=== PATIENT | male | born 1940 | race Caucasian/White ===

== ENCOUNTER 2018-05-28 14:33 | Inpatient (IN) | payer MEDICARE, OTHER ==
[~2018-05-28] VITALS: Ht 177.8 cm; Wt 68.2 kg
[2018-05-28] MEDS ORDERED: aspirin 81mg tab.chew PO ONE (15:00)
[2018-05-28] MEDS ORDERED: furosemide 10 MG/1 ML 10ml inj IV ONE (15:00)
[2018-05-28 15:23] LABS: BASOPHILS % (AUTO) 0.7 % (0-1); EOSINOPHILS % (AUTO) 0.8 % (0-6); HEMATOCRIT 37.2 % (42.0-52.0); HEMOGLOBIN 12.6 g/dl (14.0-17.9); LYMPHOCYTES # (AUTO) 1.1 X10'3 (1.1-4.8); LYMPHOCYTES % (AUTO) 18.6 % (21-51); MEAN CORPUSCULAR HEMOGLOBIN 33.5 PG (27.0-31.0); MEAN CORPUSCULAR HGB CONC 33.8 % (33.0-36.5); MEAN CORPUSCULAR VOLUME 99.2 FL (78-98); MEAN PLATELET VOLUME 8.6 FL (7.4-10.4); MONOCYTES # (AUTO) 0.5 X10'3 (0-0.9); MONOCYTES % (AUTO) 7.8 % (2-12); NEUTROPHILS # (AUTO) 4.4 X10'3 (1.8-7.7); NEUTROPHILS % (AUTO) 72.1 % (42-75); PLATELET COUNT 226 X10'3 (140-440); RED BLOOD COUNT 3.75 X10'6 (4.70-6.10); RED CELL DISTRIBUTION WIDTH 14.1 % (11.5-14.5); WHITE BLOOD COUNT 6.1 X10'3 (4.5-11.0)
[2018-05-28 15:48] LABS: ALANINE AMINOTRANSFERASE 37 U/L (12-78); ALBUMIN 3.3 G/DL (3.4-5.0); ALKALINE PHOSPHATASE 94 IU/L (46-116); ANION GAP 5 (8-16); ASPARTATE AMINO TRANSFERASE 69 U/L (10-37); BILIRUBIN,TOTAL 0.7 MG/DL (0.1-1.0); BLOOD UREA NITROGEN 27 MG/DL (7-18); CALCIUM 8.7 MG/DL (8.5-10.1); CHLORIDE 105 MMOL/L (99-107); CREATININE 0.71 MG/DL (0.60-1.10); GLUCOSE 72 MG/DL (70-104); POTASSIUM 4.2 MMOL/L (3.5-5.1); SODIUM 140 MMOL/L (135-145); TOTAL PROTEIN 6.7 G/DL (6.4-8.2); eGFR > 90 ML/MIN
[2018-05-28 15:55] LABS: MAGNESIUM 2.1 MG/DL (1.5-2.4)
[2018-05-28] MEDS ORDERED: heparin 10,000 units/1 ML INJ IV ONE (15:55)
[2018-05-28] MEDS: heparin 25,000 UNIT/250ml bag 250 ML IV SCH ×2 (16:13→23:41)
[2018-05-28] MEDS ORDERED: LORazepam 1 MG tablet PO ONE (16:30)
[2018-05-28] MEDS ORDERED: potassium Cl 40MEQ/NS 500ml 500 ML IV PRN ×2 (16:40)
[2018-05-28] MEDS ORDERED: diphenhydrAMINE 25mg capsule PO PRN (16:40)
[2018-05-28] MEDS ORDERED: acetaminophen 325mg tablet PO PRN ×2 (16:40)
[2018-05-28] MEDS ORDERED: nitroGLYCERIN 0.4mg SUBLingual tab SL PRN (16:40)
[2018-05-28] MEDS ORDERED: ondansetron/PF 4mg/2ml inj IV PRN (16:40)
[2018-05-28] MEDS ORDERED: morphine 2 MG/ML inj. syringe IV PRN ×2 (16:40)
[2018-05-28] MEDS ORDERED: magnesium 4gm in 100ml NS 100 ML IV PRN (16:40)
[2018-05-28] MEDS ORDERED: magnesium hydroxide 30ml (MOM) UD suspension PO PRN (16:40)
[2018-05-28] MEDS ORDERED: potassium Cl 20 mEq SR tablet PO PRN ×2 (16:40)
[2018-05-28] MEDS ORDERED: HYDROcodone/acetaminophen 10/325mg tab PO PRN (16:40)
[2018-05-28] MEDS ORDERED: magnesium 1gm/100ml D5W IVPB 100 ML IV PRN (16:40)
[2018-05-28] MEDS ORDERED: HYDROcodone/acetaminophen 5mg/325mg tablet PO PRN (16:40)
[2018-05-28] MEDS ORDERED: mag hydrox/Alum hydrox/simeth 30ml oral suspension PO PRN (16:40)
[2018-05-28] MEDS ORDERED: magnesium Cl slow-release 64mg tablet PO PRN (16:40)
[2018-05-28] MEDS: normal saline 1000ml 1,000 ML IV SCH ×2 (17:02→21:18)
[2018-05-28] MEDS: atorvastatin 20mg tablet PO SCH (17:02)
[2018-05-28] MEDS: K and/or MAG REPLACEMENT MC SCH (17:03)
[2018-05-28 17:08] LABS: HEMOGLOBIN A1C 5.5 % (4.5-6.2)
[2018-05-28 17:32] LABS: CLARITY,URINE CLEAR (Clear); COLOR,URINE YELLOW (Yellow); GLUCOSE, URINE NEGATIVE (Neg); KETONES,URINE NEGATIVE (Neg); LEUKOCYTE ESTERASE ,URINE NEGATIVE (Neg); NITRITES, URINE NEGATIVE (Neg); OCCULT BLOOD,URINE NEGATIVE (Neg); PH,URINE 5.5 (4.8-8.0); PROTEIN,URINE NEGATIVE (Neg); UROBILINOGEN,URINE 0.2 E.U/dL (0.2-1.0)
[2018-05-28 17:34] LABS: UA COLLECTION TYPE NON-SPECIFIED
[2018-05-28 18:00] LABS: PARTIAL THROMBOPLASTIN TIME 25 SECONDS (22-32); PROTHROMBIN TIME 10.3 SECONDS (9.0-12.0)
[2018-05-28] MEDS ORDERED: methylPREDNISolone sod succ 125mg/2ml vial IV ONE (18:10)
[2018-05-28] MEDS ORDERED: ipratropium/albuterol 3ml nebule NEB PRN (18:10)
[2018-05-28] MEDS: levoFLOXACIN-Levaquin 750MG/D5 150 ML IV SCH (18:32)
[2018-05-28 20:00] VITALS: BP 135/86
[2018-05-28] MEDS ORDERED: aspirin/dipyridamole 25mg/200mg SR. capsule PO SCH (20:00)
[2018-05-28] MEDS: ipratropium/albuterol 3ml nebule NEB SCH (21:00)
[2018-05-28] MEDS: carVEDilol 3.125mg tablet PO SCH (21:14)
[2018-05-28] MEDS: furosemide 40mg/4ml inj IV SCH (22:00)
[2018-05-28 23:00] VITALS: BP 90/44
[2018-05-28] MEDS: heparin 10,000 units/1 ML INJ IV PRN (23:38)
[2018-05-28] MEDS: tirofiban 5mg in NS 100mL 100 ML IV SCH (23:41)
[2018-05-28] MEDS: methylPREDNISolone sod succ 125mg/2ml vial IV SCH (23:43)
[2018-05-29] VITALS (8 sets, daily range): BP systolic 103–145; BP diastolic 50–79
[2018-05-29] MEDS: ipratropium/albuterol 3ml nebule NEB SCH ×4 (03:00→21:30)
[2018-05-29 03:30] LABS: ALANINE AMINOTRANSFERASE 35 U/L (12-78); ALBUMIN 2.8 G/DL (3.4-5.0); ALBUMIN/GLOBULIN RATIO 0.8 (1.1-1.5); ALKALINE PHOSPHATASE 86 IU/L (46-116); ANION GAP 6 (8-16); ASPARTATE AMINO TRANSFERASE 54 U/L (10-37); BILIRUBIN,TOTAL 0.7 MG/DL (0.1-1.0); BLOOD UREA NITROGEN 32 MG/DL (7-18); BUN/CREATININE RATIO 33.7 (5.4-32.0); CALCIUM 8.7 MG/DL (8.5-10.1); CHLORIDE 105 MMOL/L (99-107); CREATININE 0.95 MG/DL (0.60-1.10); GLUCOSE 144 MG/DL (70-104); POTASSIUM 4.3 MMOL/L (3.5-5.1); SODIUM 140 MMOL/L (135-145); TOTAL CARBON DIOXIDE 28.8 MMOL/L (24-32); TOTAL PROTEIN 6.1 G/DL (6.4-8.2); eGFR 77 ML/MIN
[2018-05-29 03:33] LABS: CHOL/HDL RATIO 2.9 (0.00-4.99); CHOLESTEROL 155 MG/DL (0-200); HDL CHOLESTEROL 53 MG/DL (35-60); LDL CHOLESTEROL 102 MG/DL (50-100); MAGNESIUM 2.1 MG/DL (1.5-2.4); PHOSPHORUS 2.8 MG/DL (2.3-4.5); TRIGLYCERIDES 21 MG/DL (20-135)
[2018-05-29 03:49] LABS: BASOPHILS % (AUTO) 0.1 % (0-1); EOSINOPHILS % (AUTO) 0.3 % (0-6); HEMATOCRIT 35.5 % (42.0-52.0); LYMPHOCYTES # (AUTO) 0.4 X10'3 (1.1-4.8); LYMPHOCYTES % (AUTO) 9.3 % (21-51); MEAN CORPUSCULAR HEMOGLOBIN 33.4 PG (27.0-31.0); MEAN CORPUSCULAR HGB CONC 33.9 % (33.0-36.5); MEAN CORPUSCULAR VOLUME 98.6 FL (78-98); MEAN PLATELET VOLUME 9.6 FL (7.4-10.4); MONOCYTES % (AUTO) 0.6 % (2-12); NEUTROPHILS # (AUTO) 3.7 X10'3 (1.8-7.7); NEUTROPHILS % (AUTO) 89.7 % (42-75); PLATELET COUNT 212 X10'3 (140-440); RED CELL DISTRIBUTION WIDTH 13.8 % (11.5-14.5); WHITE BLOOD COUNT 4.2 X10'3 (4.5-11.0)
[2018-05-29 03:57] LABS: TOTAL CELLS COUNTED 100
[2018-05-29 03:58] LABS: GIANT PLATELET FEW; LARGE PLATELETS FEW; NEUTROPHILS % (MANUAL) 89 % (42-75); NUCLEATED RED BLOOD CELLS 1 /100WBC (0-0); PLATELET ESTIMATE NORMAL
[2018-05-29] MEDS: tirofiban 5mg in NS 100mL 100 ML IV SCH ×2 (04:31→15:18)
[2018-05-29] MEDS: K and/or MAG REPLACEMENT MC SCH (08:00)
[2018-05-29] MEDS: aspirin 81mg tab.chew PO SCH (08:21)
[2018-05-29] MEDS: lisinopril 5mg tablet PO SCH (08:21)
[2018-05-29] MEDS: atorvastatin 20mg tablet PO SCH (08:22)
[2018-05-29] MEDS: carVEDilol 3.125mg tablet PO SCH ×2 (08:22→20:08)
[2018-05-29] MEDS: levoFLOXACIN-Levaquin 750MG/D5 150 ML IV SCH (08:24)
[2018-05-29] MEDS: furosemide 40mg/4ml inj IV SCH ×2 (08:24→20:08)
[2018-05-29] MEDS: methylPREDNISolone sod succ 125mg/2ml vial IV SCH ×2 (08:24→16:18)
[2018-05-29] MEDS ORDERED: CHOL100046 PO (09:55)
[2018-05-29] MEDS ORDERED: TAMS0.4C32 PO (09:55)
[2018-05-29] MEDS ORDERED: TRAZ-218 PO (09:55)
[2018-05-29] MEDS ORDERED: ASPI81TA52 PO (09:55)
[2018-05-29] MEDS ORDERED: CITA10TA9 PO (09:55)
[2018-05-29] MEDS: heparin 10,000 units/1 ML INJ IV PRN ×2 (11:33→23:10)
[2018-05-29] MEDS: heparin 25,000 UNIT/250ml bag 250 ML IV SCH ×2 (11:39→23:12)
[2018-05-29] MEDS ORDERED: iohexol 350MG/ML 100ml bottle IV ONE (17:29)
[2018-05-29] MEDS ORDERED: LIDOcaine 1% 30ml preserv. free vial ONE (17:29)
[2018-05-29] MEDS ORDERED: heparin 1,000 UNITS/NS 500ml 0 ML ONE (17:29)
[2018-05-29] MEDS: temazepam 15mg capsule PO PRN (21:59)
[2018-05-30] VITALS (10 sets, daily range): BP systolic 107–151; BP diastolic 61–88
[2018-05-30] MEDS: methylPREDNISolone sod succ 125mg/2ml vial IV SCH ×2 (00:21→08:22)
[2018-05-30] MEDS: tirofiban 5mg in NS 100mL 100 ML IV SCH ×2 (00:30→07:53)
[2018-05-30] MEDS: ipratropium/albuterol 3ml nebule NEB SCH ×4 (03:10→20:29)
[2018-05-30 05:20] LABS: BASOPHILS % (AUTO) 0.2 % (0-1); EOSINOPHILS % (AUTO) 0 % (0-6); HEMATOCRIT 33.4 % (42.0-52.0); HEMOGLOBIN 11.3 g/dl (14.0-17.9); LYMPHOCYTES # (AUTO) 0.5 X10'3 (1.1-4.8); LYMPHOCYTES % (AUTO) 5.8 % (21-51); MEAN CORPUSCULAR HEMOGLOBIN 33.5 PG (27.0-31.0); MEAN CORPUSCULAR HGB CONC 33.9 % (33.0-36.5); MEAN CORPUSCULAR VOLUME 98.7 FL (78-98); MEAN PLATELET VOLUME 9.6 FL (7.4-10.4); MONOCYTES # (AUTO) 0.4 X10'3 (0-0.9); MONOCYTES % (AUTO) 5.1 % (2-12); NEUTROPHILS % (AUTO) 88.9 % (42-75); PLATELET COUNT 205 X10'3 (140-440); RED BLOOD COUNT 3.39 X10'6 (4.70-6.10); RED CELL DISTRIBUTION WIDTH 14.2 % (11.5-14.5); WHITE BLOOD COUNT 7.9 X10'3 (4.5-11.0)
[2018-05-30 06:02] LABS: ALANINE AMINOTRANSFERASE 27 U/L (12-78); ALBUMIN 2.6 G/DL (3.4-5.0); ALBUMIN/GLOBULIN RATIO 0.9 (1.1-1.5); ALKALINE PHOSPHATASE 70 IU/L (46-116); ANION GAP 8 (8-16); ASPARTATE AMINO TRANSFERASE 36 U/L (10-37); BILIRUBIN,TOTAL 0.4 MG/DL (0.1-1.0); BLOOD UREA NITROGEN 40 MG/DL (7-18); BUN/CREATININE RATIO 44.9 (5.4-32.0); CALCIUM 8.4 MG/DL (8.5-10.1); CHLORIDE 105 MMOL/L (99-107); CREATININE 0.89 MG/DL (0.60-1.10); GLUCOSE 134 MG/DL (70-104); MAGNESIUM 2.1 MG/DL (1.5-2.4); PHOSPHORUS 3.4 MG/DL (2.3-4.5); POTASSIUM 3.8 MMOL/L (3.5-5.1); SODIUM 141 MMOL/L (135-145); TOTAL CARBON DIOXIDE 27.9 MMOL/L (24-32); TOTAL PROTEIN 5.6 G/DL (6.4-8.2); eGFR 83 ML/MIN
[2018-05-30] MEDS ORDERED: potassium Cl 20 mEq SR tablet PO STA (07:19)
[2018-05-30] MEDS ORDERED: amiodarone 150mg/dext, iso-os 100 ML IV ONE (07:20)
[2018-05-30] MEDS: heparin 25,000 UNIT/250ml bag 250 ML IV SCH ×3 (07:51→15:46)
[2018-05-30] MEDS: levoFLOXACIN-Levaquin 750MG/D5 150 ML IV SCH (07:58)
[2018-05-30] MEDS: lisinopril 5mg tablet PO SCH (08:14)
[2018-05-30] MEDS: atorvastatin 20mg tablet PO SCH (08:14)
[2018-05-30] MEDS: aspirin 81mg tab.chew PO SCH (08:14)
[2018-05-30] MEDS: carVEDilol 3.125mg tablet PO SCH ×2 (08:14→20:57)
[2018-05-30] MEDS: furosemide 40mg/4ml inj IV SCH ×2 (08:22→20:57)
[2018-05-30] MEDS: amiodarone/D5 360MG/200ML BAG 200 ML IV SCH ×2 (11:32→17:34)
[2018-05-30] MEDS ORDERED: atorvastatin 20mg tablet PO ONE (13:30)
[2018-05-30] MEDS ORDERED: nicotine 21mg patch - 24 hr TD ONE (14:05)
[2018-05-30] MEDS ORDERED: CITALOpram 10mg tablet PO ONE (14:55)
[2018-05-30] MEDS ORDERED: tirofiban 5mg in NS 100mL 100 ML IV SCH (15:10)
[2018-05-30] MEDS: heparin 10,000 units/1 ML INJ IV PRN (15:43)
[2018-05-30] MEDS ORDERED: clopidogrel 300mg tablet PO ONE ×2 (15:45→17:30)
[2018-05-30] MEDS: normal saline 1000ml 1,000 ML IV SCH (16:40)
[2018-05-30] MEDS: temazepam 15mg capsule PO PRN (23:21)
[2018-05-31 02:00] VITALS: BP 104/61
[2018-05-31] MEDS: ipratropium/albuterol 3ml nebule NEB SCH ×2 (03:00→08:06)
[2018-05-31 04:49] LABS: BASOPHILS # (AUTO) 0.1 X10'3 (0-0.2); BASOPHILS % (AUTO) 1.2 % (0-1); EOSINOPHILS # (AUTO) 0.1 X10'3 (0-0.9); EOSINOPHILS % (AUTO) 0.9 % (0-6); HEMATOCRIT 32.1 % (42.0-52.0); HEMOGLOBIN 10.8 g/dl (14.0-17.9); LYMPHOCYTES # (AUTO) 0.8 X10'3 (1.1-4.8); LYMPHOCYTES % (AUTO) 9.6 % (21-51); MEAN CORPUSCULAR HEMOGLOBIN 33.4 PG (27.0-31.0); MEAN CORPUSCULAR HGB CONC 33.7 % (33.0-36.5); MONOCYTES # (AUTO) 0.6 X10'3 (0-0.9); MONOCYTES % (AUTO) 7.2 % (2-12); NEUTROPHILS # (AUTO) 6.9 X10'3 (1.8-7.7); NEUTROPHILS % (AUTO) 81.1 % (42-75); PLATELET COUNT 208 X10'3 (140-440); RED BLOOD COUNT 3.24 X10'6 (4.70-6.10); RED CELL DISTRIBUTION WIDTH 14.3 % (11.5-14.5); WHITE BLOOD COUNT 8.6 X10'3 (4.5-11.0)
[2018-05-31 05:03] LABS: ALBUMIN 2.5 G/DL (3.4-5.0); ALBUMIN/GLOBULIN RATIO 0.9 (1.1-1.5); MAGNESIUM 2.1 MG/DL (1.5-2.4); POTASSIUM 3.7 MMOL/L (3.5-5.1); TOTAL PROTEIN 5.4 G/DL (6.4-8.2)
[2018-05-31 05:24] LABS: ALANINE AMINOTRANSFERASE 29 U/L (12-78); ALKALINE PHOSPHATASE 69 IU/L (46-116); ANION GAP 7 (8-16); ASPARTATE AMINO TRANSFERASE 33 U/L (10-37); BILIRUBIN,TOTAL 0.3 MG/DL (0.1-1.0); BLOOD UREA NITROGEN 49 MG/DL (7-18); BUN/CREATININE RATIO 47.6 (5.4-32.0); CALCIUM 8.5 MG/DL (8.5-10.1); CHLORIDE 105 MMOL/L (99-107); CREATININE 1.03 MG/DL (0.60-1.10); GLUCOSE 104 MG/DL (70-104); PHOSPHORUS 3.5 MG/DL (2.3-4.5); SODIUM 139 MMOL/L (135-145); TOTAL CARBON DIOXIDE 27.4 MMOL/L (24-32); eGFR 70 ML/MIN
[2018-05-31 06:00] VITALS: BP 125/68
[2018-05-31] MEDS ORDERED: clopidogrel 75mg tablet PO SCH ×2 (08:00)
[2018-05-31] MEDS ORDERED: CITALOpram 10mg tablet PO SCH (08:00)
[2018-05-31] MEDS ORDERED: nicotine 21mg patch - 24 hr TD SCH (08:00)
[2018-05-31] MEDS ORDERED: atorvastatin 20mg tablet PO SCH (08:00)
[2018-05-31] MEDS: levoFLOXACIN-Levaquin 750MG/D5 150 ML IV SCH (08:31)
[2018-05-31] MEDS: aspirin 81mg tab.chew PO SCH (08:32)
[2018-05-31] MEDS: lisinopril 5mg tablet PO SCH (08:32)
[2018-05-31] MEDS: carVEDilol 3.125mg tablet PO SCH (08:33)
[2018-05-31] MEDS: furosemide 40mg/4ml inj IV SCH (08:33)
== END 2018-05-31 11:30 | disposition short-term general hospital (02) | DRG 280 ==
LOC: ER 14:35 → ED HOLD 16:40 → PCU 3S 19:45 → CMPBEDREQ 19:47
PROVIDERS: ADMIT Family Medicine; ATTEND Family Medicine
DX: I21.4 Non-ST elevation (NSTEMI) myocardial infarction (principal); I50.23 Acute on chronic systolic (congestive) heart failure; J96.90 Respiratory failure, unspecified, unspecified whether with hypoxia or hypercapnia; J18.1 Lobar pneumonia, unspecified organism; I47.2 Ventricular tachycardia; J44.0 Chronic obstructive pulmonary disease with (acute) lower respiratory infection; J44.1 Chronic obstructive pulmonary disease with (acute) exacerbation; D64.9 Anemia, unspecified; E78.5 Hyperlipidemia, unspecified; Z60.2 Problems related to living alone; M19.90 Unspecified osteoarthritis, unspecified site; F41.0 Panic disorder [episodic paroxysmal anxiety]; G89.29 Other chronic pain; I11.0 Hypertensive heart disease with heart failure; I25.10 Atherosclerotic heart disease of native coronary artery without angina pectoris; I65.29 Occlusion and stenosis of unspecified carotid artery; N40.0 Benign prostatic hyperplasia without lower urinary tract symptoms; R01.1 Cardiac murmur, unspecified; M54.9 Dorsalgia, unspecified; F17.210 Nicotine dependence, cigarettes, uncomplicated; Z96.653 Presence of artificial knee joint, bilateral; Z98.1 Arthrodesis status; F12.90 Cannabis use, unspecified, uncomplicated; Z98.49 Cataract extraction status, unspecified eye; Z79.899 Other long term (current) drug therapy; Z79.82 Long term (current) use of aspirin; Z82.49 Family history of ischemic heart disease and other diseases of the circulatory system; Z71.6 Tobacco abuse counseling
CPT/HCPCS: 36415; 71045; 80053; 80061; 81003; 83036; 83605; 83735; 83880; 84100; 84145; 84484; 85025; 85610; 85730; 87040; 87070; 93005; 93306; 94640; 94760; 96374; 96375; 99291; G0378; J0282; J1644; J1940; J1956; J2930; J3246; J3490; J7030; Q9967